=== PATIENT | male | born 1980 | race Caucasian/White ===

== ENCOUNTER → 2025-01-08 06:56 | Outpatient (REF) | payer BC, SELFPAY | LOC: RAD 06:56 | PROVIDERS: ATTENDING PHYSICIAN Family Medicine | DX: R10.84 Generalized abdominal pain (principal) | CPT/HCPCS: 74178; Q9967 ==

== ENCOUNTER → 2025-07-15 08:37 | Outpatient (REF) | payer BC, SELFPAY | LOC: RAD 08:37 | PROVIDERS: ATTENDING PHYSICIAN Internal Medicine Gastroenterology; FAMILY PHYSICIAN Family Medicine | DX: R10.10 Upper abdominal pain, unspecified (principal) | CPT/HCPCS: 74177; Q9967 ==